=== PATIENT | male | born 1950 | race Caucasian/White ===

== ENCOUNTER 2018-06-18 09:25 | Emergency (ER) | payer MEDICARE, BC ==
[~2018-06-18] VITALS: Ht 188 cm; Wt 140.6 kg
[2018-06-18] MEDS ORDERED: CLONIDINE HCL 0.2 MG TAB PO ONE (10:30)
[2018-06-18 10:39] LABS: CLARITY,URINE CLOUDY (CLEAR); COLOR,URINE AMBER (YELLOW)
[2018-06-18 10:40] LABS: BILIRUBIN,URINE 2+ (NEGATIVE); KETONES,URINE TRACE (NEGATIVE); LEUKOCYTE ESTERASE ,URINE NEGATIVE (NEGATIVE); NITRITE,URINE NEGATIVE (NEGATIVE); PROTEIN,URINE DIPSTICK 2+ (NEGATIVE); URINE UROBILINOGEN 1 mg/dL (0.2 - 1)
[2018-06-18 10:41] LABS: BACTERIA,URINE FEW /HPF; EPITHELIAL CELLS,URINE MODERATE /LPF
[2018-06-18] MEDS ORDERED: SODIUM CHLORIDE 0.9% 500ML 500 ML IV STA (11:38)
[2018-06-18] MEDS ORDERED: CEFTRIAXONE SOD 1 GM VIAL IV ONE (11:45)
[2018-06-18 11:57] LABS: BASOPHILS % 0.6 % (0.0-1.0); EOSINOPHILS % 1.1 % (0.0-6.0); HEMATOCRIT 46.9 % (38.2-49.6); HEMOGLOBIN 15.7 g/dL (14.0-18.0); LYMPHOCYTES # (AUTO) 0.8 (1.0-3.2); LYMPHOCYTES % 23.4 % (18.0-39.1); MEAN CORPUSCULAR HEMOGLOBIN 31.4 pg (28-32); MEAN CORPUSCULAR HGB CONC 33.5 g/dL (31-35); MEAN CORPUSCULAR VOLUME 93.8 fL (81-99); MONOCYTES # (AUTO) 0.9 (0.2-0.8); MONOCYTES % 25.4 % (4.4-11.3); NEUTROPHILS # (AUTO) 1.7 (2.1-6.9); NEUTROPHILS % 48.1 % (38.7-80.0); PLATELET COUNT 70 x10e3/uL (140-360); RED CELL DISTRIBUTION WIDTH 13.3 % (11.7-14.4)
[2018-06-18 12:18] LABS: ALBUMIN 4.1 g/dL (3.5-5.0); ALBUMIN/GLOBULIN RATIO 1.3 (0.8-2.0); ANION GAP 16.8 mmol/L (8-16); CREATININE, SERUM 1.23 mg/dL (0.72-1.25); POTASSIUM 4.8 mmol/L (3.5-5.1)
[2018-06-18] MEDS ORDERED: DIATRIZOATE MEGL/DIATRIZOA SOD 30 ML BTL PO ONE (12:52)
[2018-06-18] MEDS ORDERED: IOPAMIDOL 370 MG/ML 200 ML INFUS..BTL INJ ONE (13:27)
[2018-06-18] MEDS ORDERED: SODIUM CHLORIDE 0.9% 50ML 50 ML ONE (13:27)
--- NOTE | 2018-06-18 13:57 | Diagnostic Imaging Report ---
EXAM: Scrotal Ultrasound INDICATION: Right testes pain, look for torsions, infection COMPARISON: None TECHNIQUE: Transverse and longitudinal images were obtained of the scrotum with grayscale imaging, color Doppler and spectral waveform analysis. FINDINGS: Right testis: Size: 2.0 x 3.4 x 2.9 cm, small. Echogenicity: Coarsened echotexture diffusely. Mass/Cysts: None Left testis: Size: 3.3 x 1.9 x 3.0 cm, small. Echogenicity: Coarsened echotexture diffusely. Mass/Cysts: None Epididymis: Appearance: Normal in size without increased vascularity. Mass/Cysts: None Extratesticular: Masses: None Fluid collections: None Doppler: Normal arterial flow to both testes and symmetrical flow on color Doppler evaluation is seen. No evidence of testicular torsion. IMPRESSION: 1. No evidence of testicular torsion. 2. Somewhat atrophic testicles, otherwise unremarkable scrotal ultrasound exam. Signed by: Dr. Anne Emanuel M.D. on 06/18/2018 1:54 PM
--- NOTE | 2018-06-18 14:46 | Diagnostic Imaging Report ---
EXAM: CT Pelvis WITH contrast INDICATION: Right inguinal/scrotal pain concerning for hernia. COMPARISON: None. TECHNIQUE: Pelvis were scanned utilizing a multidetector helical scanner from the iliac crest to the pubic symphysis after administration of IV contrast. Coronal and sagittal reformations were obtained. Routine protocol was performed. Scan was performed when during portal venous phase. IV CONTRAST: 100 cc Isovue 370 ORAL CONTRAST: Gastrografin water mixture. RADIATION DOSE: Total DLP: 774.97 MGy*cm Estimated effective dose: (DLP x 0.015 x size factor) mSv COMPLICATIONS: None FINDINGS: LINES and TUBES: None. GI TRACT: No abnormal distention, wall thickening, or evidence of bowel obstruction. Scattered sigmoid diverticulosis without diverticulitis. PELVIC ORGANS/BLADDER: The urinary bladder is under distended which precludes adequate evaluation, however, grossly unremarkable. Calcification of the vas deferens bilaterally. LYMPH NODES: No lymphadenopathy. VESSELS: There is mild atherosclerotic disease in the aorta and major arterial branches. PERITONEUM / RETROPERITONEUM: No free air or fluid. BONES: Unremarkable. SOFT TISSUES: Bilateral small fat-containing inguinal hernias. No herniated bowel loops. Bilateral mastectomy clips. IMPRESSION: 1. Bilateral small fat-containing inguinal hernias. There are no herniated bowel loops or evidence of acute abnormality. Signed by: Dr. Anne Emanuel M.D. on 06/18/2018 2:43 PM
[2018-06-18 15:16] VITALS: BP 160/72
== END 2018-06-18 15:29 | disposition home or self-care (01) ==
LOC: ER 09:25
DX: N50.811 Right testicular pain (principal); N50.89 Other specified disorders of the male genital organs; I10 Essential (primary) hypertension; E11.9 Type 2 diabetes mellitus without complications
CPT/HCPCS: 36415; 72193; 76870; 80053; 81001; 85025; 93976; 99283; J0696; J7040; Q9967